=== PATIENT | male | born 1985 | race African-American/Black ===

== ENCOUNTER 2018-03-30 12:19 | Emergency (ER) | payer MEDICAID ==
[~2018-03-30] VITALS: Ht 167.6 cm; Wt 79.8 kg
[2018-03-30 12:31] VITALS: BP 132/78
== END 2018-03-30 13:59 | disposition home or self-care (01) ==
LOC: ED 12:19
DX: M41.9 Scoliosis, unspecified (principal); Z76.0 Encounter for issue of repeat prescription; Z88.5 Allergy status to narcotic agent